=== PATIENT | female | born 1965 | race African-American/Black ===

== ENCOUNTER 2021-04-14 21:04 | Inpatient (IN) | payer OTHER ==
[~2021-04-14] VITALS: Ht 152.4 cm; Wt 106.6 kg
[2021-04-15] MEDS ORDERED: DEXT 5%/0.9% NACL 1,000 ML IV ONE (02:45)
[2021-04-15] MEDS ORDERED: ACETAMINOPHEN 325MG TABLET PO ONE (02:45)
[2021-04-15] MEDS ORDERED: KETOROLAC 15MG/ML VIAL IV ONE (02:45)
[2021-04-15 03:09] LABS: BASOPHILS % 0.3 % (0.0-2.0); HEMATOCRIT. 37.8 % (36.0-48.0); HEMOGLOBIN. 12.8 g/dL (12.0-16.0); MEAN CORPUSCULAR HEMOGLOBIN 29.7 pg (28.0-32.0); MEAN CORPUSCULAR VOLUME 87.8 fL (81.0-99.0); MEAN PLATELET VOLUME 9.8 fl (7.4-10.4); MONOCYTES % 7.2 % (2.0-8.0); NEUTROPHILS % 77.5 % (40.0-76.0); PLATELET 138 x1000/uL (130-400); RED BLOOD CELL COUNT 4.31 mill/uL (4.2-5.4); RED CELL DISTRIBUTION WIDTH 14.6 % (11.6-14.6)
[2021-04-15 03:14] LABS: CHLORIDE 105 mEq/L (98-107)
[2021-04-15 03:46] LABS: CLARITY URINE CLEAR (CLEAR); COLOR URINE YELLOW (YELLOW); KETONES URINE NEGATIVE (NEGATIVE); LEUKOCYTE ESTERASE URINE TRACE (NEGATIVE); NITRITE URINE NEGATIVE (NEGATIVE); OCCULT BLOOD URINE 3+ (NEGATIVE); PROTEIN URINE 1+ (NEGATIVE); SPECIFIC GRAVITY URINE 1.008 (1.005-1.030)
[2021-04-15] MEDS ORDERED: HYDROCODONE/ACETAMINOPHEN 5/325MG TABLET PO PRN (06:15)
[2021-04-15] MEDS ORDERED: HYDRALAZINE 20MG/ML VIAL IV PRN (06:15)
[2021-04-15] MEDS ORDERED: MORPHINE SULFATE 2 MG/ML CPJ (NOT FOR IM USE) IV PRN (06:15)
[2021-04-15] MEDS ORDERED: GUAIFENESIN 200MG/10ML SUGAR FREE UDC PO PRN (06:15)
[2021-04-15] MEDS ORDERED: CLONIDINE 0.1MG TABLET PO PRN (06:15)
[2021-04-15] MEDS ORDERED: DIPHENHYDRAMINE 50MG/ML VIAL IV PRN (06:15)
[2021-04-15] MEDS ORDERED: ONDANSETRON HCL 4MG/2ML INJ IV PRN (06:15)
[2021-04-15] MEDS ORDERED: ACETAMINOPHEN 325MG TABLET PO PRN (06:15)
[2021-04-15] MEDS ORDERED: LORAZEPAM 2MG/ML CPJ IV PRN (06:15)
[2021-04-15] MEDS ORDERED: IPRATROPIUM/ALBUTEROL 0.5-3(2.5)MG/3ML NEB HHN PRN (06:15)
[2021-04-15] MEDS ORDERED: POTASSIUM CHLORIDE 20MEQ TABLET SR PO SCH (06:30)
[2021-04-15] MEDS ORDERED: NALOXONE HCL 0.4MG/ML VIAL IV PRN (08:45)
[2021-04-15] MEDS ORDERED: ENOXAPARIN 40MG/0.4ML SYR SUBCUT SCH (09:00)
[2021-04-15] MEDS ORDERED: DOCUSATE SODIUM 100MG CAPSULE PO PRN (09:00)
[2021-04-15] MEDS ORDERED: MAGNESIUM/ALUMINUM HYDROXIDE/SIMETHICONE 30ML UDC PO PRN (09:00)
[2021-04-15] MEDS: ASPIRIN 81MG TABLET PO SCH (13:51)
[2021-04-15 17:30] VITALS: BP_SYST 107; BP_SYST 122; BP_DIAS 74
[2021-04-15] MEDS: SODIUM CHLORIDE 0.9% INJ 3ML FLUSH IVF SCH ×2 (18:13→21:00)
[2021-04-15] MEDS ORDERED: NAPR-681 PO (18:18)
[2021-04-15 20:00] VITALS: BP 120/61
[2021-04-15 23:04] LABS: *AMPHETAMINES SCREEN URINE NEGATIVE (NEGATIVE); *BARBITURATES SCREEN URINE NEGATIVE (NEGATIVE); *BENZODIAZEPINES SCREEN URINE NEGATIVE (NEGATIVE); *COCAINE SCREEN URINE NEGATIVE (NEGATIVE); CANNABINOID URINE SCREEN NEGATIVE (NEGATIVE); METHADONE URINE SCREEN NEGATIVE (NEGATIVE); OPIATES URINE SCREEN NEGATIVE (NEGATIVE); PHENCYCLIDINE URINE SCREEN NEGATIVE (NEGATIVE)
[2021-04-16 00:44] VITALS: BP 101/58
[2021-04-16 04:00] VITALS: BP 111/60
[2021-04-16] MEDS: SODIUM CHLORIDE 0.9% INJ 3ML FLUSH IVF SCH ×3 (05:14→21:12)
[2021-04-16 06:31] LABS: BASOPHILS % 0.2 % (0.0-2.0); EOSINOPHILS % 0.1 % (0.0-5.0); HEMATOCRIT. 35.4 % (36.0-48.0); HEMOGLOBIN. 11.9 g/dL (12.0-16.0); LYMPHOCYTES % 21.2 % (20.0-50.0); MEAN CORPUSCULAR HEMOGLOBIN 29.3 pg (28.0-32.0); MEAN CORPUSCULAR VOLUME 87.5 fL (81.0-99.0); MONOCYTES % 6.6 % (2.0-8.0); NEUTROPHILS % 71.9 % (40.0-76.0); PLATELET 155 x1000/uL (130-400); RED BLOOD CELL COUNT 4.05 mill/uL (4.2-5.4); RED CELL DISTRIBUTION WIDTH 14.2 % (11.6-14.6)
[2021-04-16 06:51] LABS: CHLORIDE 111 mEq/L (98-107)
[2021-04-16 08:00] VITALS: BP 129/77
[2021-04-16] MEDS: ASPIRIN 81MG TABLET PO SCH (08:18)
[2021-04-16] MEDS: ENOXAPARIN 30MG/0.3ML SYR SUBCUT SCH ×2 (08:19→21:12)
[2021-04-16 12:00] VITALS: BP 119/78
[2021-04-16 16:00] VITALS: BP 132/73
[2021-04-16 20:28] VITALS: BP 115/62
[2021-04-17 00:34] VITALS: BP 139/74
[2021-04-17 04:00] VITALS: BP 133/83
[2021-04-17] MEDS: SODIUM CHLORIDE 0.9% INJ 3ML FLUSH IVF SCH (05:47)
[2021-04-17 08:00] VITALS: BP 124/71
[2021-04-17] MEDS: ASPIRIN 81MG TABLET PO SCH (08:29)
[2021-04-17] MEDS: ENOXAPARIN 30MG/0.3ML SYR SUBCUT SCH (08:30)
[2021-04-17] MEDS ORDERED: ASPI-1497 PO (10:47)
[2021-04-17] MEDS ORDERED: DEXA4TAB PO (10:50)
[2021-04-17] MEDS ORDERED: ALBU6.7H9 INH (10:53)
[2021-04-17] MEDS ORDERED: AZIT500T3 MT (10:54)
[2021-04-17] MEDS ORDERED: TOPUD MT (10:55)
[2021-04-17 10:57] VITALS: BP 124/71
== END 2021-04-17 13:45 | disposition home or self-care (01) | DRG 864 ==
LOC: ER 21:04 → 7WST 04-15 04:37 → ENRESERV 04-15 15:12 → 7WST 04-17 09:16
PROVIDERS: ADMIT Internal Medicine; ATTEND Internal Medicine
DX: R50.9 Fever, unspecified (principal); E87.1 Hypo-osmolality and hyponatremia; Z68.42 Body mass index [BMI] 45.0-49.9, adult; I16.0 Hypertensive urgency; E87.6 Hypokalemia; E66.01 Morbid (severe) obesity due to excess calories; R94.31 Abnormal electrocardiogram [ECG] [EKG]; I10 Essential (primary) hypertension; R53.1 Weakness
CPT/HCPCS: 36415; 71045; 80048; 80053; 80305; 81003; 84443; 84484; 85025; 87426; 93005; 99285; J1650; J1885; J7042; U0003; U0005